=== PATIENT | female | born 1955 | race Caucasian/White ===

== ENCOUNTER → 2020-04-10 12:58 | Outpatient (CLI) | payer MEDICARE, OTHER, SELFPAY ==
[2020-04-11 08:52] LABS: COVID19 Sendout NOT DETECTED (Not Detect)
== END ==
PROVIDERS: Visit Provider Physician Assistant
DX: Z01.818 Encounter for other preprocedural examination (principal)
CPT/HCPCS: 87635

== ENCOUNTER 2020-04-13 07:15 | Day surgery (SDC) | payer MEDICARE, OTHER, SELFPAY ==
--- NOTE | 2020-04-13 | PATH_ITS ---
[facility] Accession Number: [id number] . 01 Material submitted: . colon - RANDOM COLON BIOPSIES . 02 Diagnosis: Random Biopsies: Collagenous colitis. MRV 04/15/2020 1312 Local . 02 Electronically signed: . Duke Alvarez MD, PhD, Pathologist NPI- [id number] . 01 Gross description: . RANDOM COLON BIOPSIES: Received in formalin are multiple fragment(s) of terry, soft tissue measuring 0.4 x 0.3 x 0.2 cm in aggregate submitted entirely in 1 cassette(s) /QBJ 04/14/2020 0110 Local . 02 Microscopic: . A trichrome stain highlights patchy irregular thickening of the subepithelial collagen plate with entrapped inflammatory cells and capillaries. A control stain shows appropriate reactivity. . 02 Pathologist provided ICD-10: K52.831 . 02 CPT . 796659, [id number] Performed at: 01 [facility] [address] [facility], [place], [place] [id number] MD Jason Foss MD Phone: [phone] Performed at: [facility] [address] [place], [place] [id number] MD Zina Hunter MD Phone: [phone]
[2020-04-13 07:40] VITALS: BP 132/77; PULSE 86; RESP 16; TEMP 36.6; O2SAT 100; BMI 23.9
[2020-04-13] MEDS: SODIUM CHLORIDE 0.9% 1,000 ML 125 ML IV (07:58)
--- NOTE | 2020-04-13 08:17 | PM.PREOP ---
Pre-operative Note COVID-19 COVID-19 status: Negative Interval Note History & Physical reviewed/Exam performed by Physician: Yes Changes to H&P: No ASA Class (for procedural sedation): I
--- NOTE | 2020-04-13 08:17 | PM.OP.ENDO ---
Operative Date/Time/Diagnoses Date of procedure: 04/13/20 Time of procedure: 08:18 Pre-op diagnosis: See indication and findings Procedure & Clinicians Study performed: Colonoscopy Same procedure as scheduled: Yes Indications: Diarrhea with history of collagenous colitis unresponsive to medications Surgeon: Kate Galindo Procedure Notes Procedure in detail: After informed consent was obtained the patient was placed in left lateral decubitus position. The video colonoscope was introduced the rectum slowly advanced to cecum. Preparation was good. On slow withdrawal mucosa was carefully examined. Scope was removed. The patient tolerated procedure well. Blood loss none Complications none Sedation Total sedation time 24 minutes Fentanyl 200 mg Versed 10 mg IV titration Findings 1. Normal terminal ileum 2. Completely normal colonoscopy to cecum. Random biopsies taken to rule out collagenous/microscopic colitis. Patient should follow up with Dr. Andrews in our office and decide on next steps. This could be a tele health visit. She does not need follow-up colonoscopy for 10 years.
[2020-04-13] MEDS: fentaNYL 250 MCG/5 ML INJ IV (08:21)
[2020-04-13] MEDS: MIDAZOLAM 5 MG/5 ML VIAL IV (08:22)
[2020-04-13 08:51] VITALS: BP 134/73; PULSE 75; RESP 10; TEMP 36.7; O2SAT 94
[2020-04-13 08:56] VITALS: BP 133/65; PULSE 78; RESP 16; O2SAT 97
[2020-04-13 09:02] VITALS: BP 107/78; PULSE 85; RESP 16; O2SAT 95
[2020-04-13 09:11] VITALS: BP 122/70; PULSE 79; RESP 18; TEMP 36.4; O2SAT 95
== END 2020-04-13 09:23 | disposition home or self-care (01) ==
PROVIDERS: PCP Nurse Practitioner; Referring Provider Nurse Practitioner; Visit Provider Internal Medicine Gastroenterology
PROC: 0DJD8ZZ Inspection of Lower Intestinal Tract, Via Natural or Artificial Opening Endoscopic (ICD-10-PCS; CPT 45378; principal; 2020-04-13 08:30)
DX: K52.831 Collagenous colitis (principal); Z87.19 Personal history of other diseases of the digestive system
CPT/HCPCS: 45380; J2250; J3010

== ENCOUNTER → 2021-07-18 12:54 | Outpatient (CLI) | payer MEDICARE, OTHER, SELFPAY ==
--- NOTE | 2021-07-18 | DI.MRI.S_ITS ---
PROCEDURE: MR SHOULDER LT WO CON INDICATIONS: Bursitis of left shoulder TECHNIQUE: Noncontrast oblique coronal T2 fast spin echo with fat saturation, oblique sagittal T1 spin echo and T2 fast spin echo with fat saturation, axial T1 spin echo and T2 fast spin echo with fat saturation through the shoulder. COMPARISON: [facility] [place], CR, XR SHOULDER 2+ VIEWS LEFT, 06/27/2021, 10:57. FINDINGS: Image quality: Excellent. Rotator cuff: Mild T2 signal elevation throughout the supraspinatus and infraspinatus tendons at the humeral insertion sites, extending to the musculotendinous junctions, indicating tendinopathy. No evidence of rotator cuff tear involving the subscapularis, supraspinatus, infraspinatus, or teres minor tendons. No rotator cuff atrophy. Bones and bursae: No bone marrow contusions or fractures. Moderate acromioclavicular joint degeneration. The acromion demonstrates conventional anatomy, without an os acromiale. No pathologic subacromial-subdeltoid or subcoracoid bursal fluid is present. Capsule and soft tissues: There is irregularity of the posterior labrum diffusely. The long head of the biceps tendon demonstrates normal location and morphology. The rotator interval appears normal, without fibrosis. The coracohumeral ligament is normal in thickness. IMPRESSION: 1. Acromioclavicular joint osteoarthritis. 2. Supraspinatus and infraspinatus tendinopathy. No rotator cuff tear. 3. Posterior labral tearing. Dictated by: John Jamil M.D. on 07/18/2021 at 13:55 Approved by: John Jamil M.D. on 07/18/2021 at 15:59
== END ==
PROVIDERS: PCP Family Medicine; Referring Provider Orthopaedic Surgery; Visit Provider Orthopaedic Surgery
DX: M75.52 Bursitis of left shoulder (principal); M19.012 Primary osteoarthritis, left shoulder; S43.492A Other sprain of left shoulder joint, initial encounter
CPT/HCPCS: 73221

== ENCOUNTER → 2021-12-21 18:36 | Outpatient (CLI) | payer MEDICARE, OTHER, SELFPAY ==
--- NOTE | 2021-12-21 | DI.MRI.S_ITS ---
PROCEDURE: MR SHOULDER RT WO CON INDICATIONS: Pain in right shoulder TECHNIQUE: Noncontrast oblique coronal T2 fast spin echo with fat saturation, oblique sagittal T1 spin echo and T2 fast spin echo with fat saturation, axial T1 spin echo and T2 fast spin echo with fat saturation through the shoulder. COMPARISON: [facility], MR, MR SHOULDER LT WO CON, 07/18/2021, 13:07. FINDINGS: Image quality: Excellent. Rotator cuff: Tendinosis and low to moderate grade articular and bursal surface partial thickness tear involving distal supraspinatus at its insertion on the humeral head is seen extending to musculotendinous junction. Distal infraspinatus and subscapularis tendinosis is seen. No full-thickness rotator cuff tendon rupture. Sagittal images demonstrate no significant muscle atrophy. Bones and bursae: No bone marrow contusions or fractures. Moderate acromioclavicular joint osteoarthritic changes are seen with downward osteophyte formation depressing the musculotendinous junction of supraspinatus. Moderate glenohumeral joint osteoarthritic changes also seen with joint space narrowing, subchondral sclerosis and marginal osteophyte fight formation. The acromion demonstrates conventional anatomy, without an os acromiale. Small amount of joint effusion and subacromial subdeltoid bursal fluid is seen. Capsule and soft tissues: There are signal abnormality within inferior labrum at 5 to 7 o'clock position concerning for subtle inferior labral tear. Superior labrum is grossly intact. The long head of the biceps tendinosis and low-grade intrasubstance partial-thickness tear is seen. The rotator interval appears normal, without fibrosis. The coracohumeral ligament is normal in thickness. IMPRESSION: 1. Tendinosis and low to moderate grade articular and bursal surface partial thickness tear involving distal supraspinatus extending to musculotendinous junction. Distal infraspinatus and subscapularis tendinosis. No full-thickness rotator cuff tendon rupture. 2. Tendinosis and low-grade intrasubstance partial-thickness tear involving proximal intra-articular portion of long head of biceps. 3. Moderate acromioclavicular joint and glenohumeral joint osteoarthritis. Small amount of joint effusion and subacromial subdeltoid bursal fluid. No fracture or dislocation. 4. Finding is concerning for inferior labral tear at 5 to 7 o'clock position. Dictated by: Cirilo Matias M.D. on 12/22/2021 at 9:14 Approved by: Cirilo Matias M.D. on 12/22/2021 at 9:53
== END ==
PROVIDERS: PCP Family Medicine; Referring Provider Orthopaedic Surgery; Visit Provider Orthopaedic Surgery
DX: M75.111 Incomplete rotator cuff tear or rupture of right shoulder, not specified as traumatic (principal); S46.111A Strain of muscle, fascia and tendon of long head of biceps, right arm, initial encounter; M75.40 Impingement syndrome of unspecified shoulder; M25.511 Pain in right shoulder; M25.512 Pain in left shoulder; M19.011 Primary osteoarthritis, right shoulder
CPT/HCPCS: 73221